=== PATIENT | female | born 1990 | race Caucasian/White ===

== ENCOUNTER 2018-01-20 08:47 | Emergency (ER) | payer MEDICAID, OTHER ==
[2018-01-20 08:52] VITALS: O2SAT 99; BMI 46.9
--- NOTE | 2018-01-20 10:03 | ED PDOC ---
HPI: Female Pain Chief Complaint (Provider): suprapubic pain History Per: Patient Onset/Duration Of Symptoms: Hrs Current Symptoms Are (Timing): Still Present Quality Of Discomfort: Sharp Associated Symptoms: denies: Fever, Chills Alleviating Factors: Rest Additional Complaint(s): 27 yo F with no significant medical history presented to ED with complaint of suprapubic pain x3-4 hrs. [place] pain when she woke up, but pain did not wake her up from sleep. Pain is described as sharp, rated 8/10, radiates to both lower quadrants, and is aggravated by walking/movement. She did not take any medication at home for the pain to go away. Pt had copper IUD placed 3 mo ago at clinic in [place] - states she has not had any problems with it until now. ROS: denies headache, chest pain, shortness of breath, dysuria, nausea, vomiting , diarrhea, feeling ill. States she was in usual state of health last night. Ob hx: ; had elective surgical termination 2 y ago Denies chronic med problems Denies other surgeries aside from TOP Social hx: daily marijuana smoker, no cigarette smoking, no alcohol use Fam hx: asthma NKDA No medications <Jeannie Fernando - Last Filed: 01/20/18 14:18> <Daniel Aguilar III - Last Filed: 01/22/18 19:16> Time Seen by Provider: 01/20/18 09:11 Chief Complaint (Nursing): Female Genitourinary Supervising Attending Note - Attestation: I have personally seen and examined this patient.: Yes I have fully participated in the care of the patient.: Yes I have reviewed all pertinent clinical information, including history, physical exam and plan: Yes - Notes: Notes:: seen and examined, agree with plan, results d/w patient and necessity of followup MACHINE DESIGN ENGINEER discussed for IUD eval possible removal <Daniel Aguilar III - Last Filed: 01/22/18 19:16> Past Medical History Reviewed: Nursing Documentation, Vital Signs Vital Signs: Last Vital Signs Temp 97 F L 01/20/18 08:51 Pulse 91 H 01/20/18 08:51 Resp BP 141/87 01/20/18 08:51 Pulse Ox 99 01/20/18 08:51 - Medical History PMH: No Chronic Diseases Denies: Chronic Kidney Disease - Surgical History Other surgeries: elective termination of 2016 - Family History Family History: States: No Known Family Hx - Social History Alcohol: None Drugs: Cannabis <Jeannie Fernando - Last Filed: 01/20/18 14:18> Vital Signs: Last Vital Signs Temp 98.5 F 01/20/18 15:14 Pulse 78 01/20/18 15:14 Resp 20 01/20/18 15:14 BP 132/68 01/20/18 15:14 Pulse Ox 99 01/20/18 15:14 <LaurenDanielRosendo III - Last Filed: 01/22/18 19:16> - Home Medications Home Medications: Ambulatory Orders Medication Instructions Recorded Amoxicillin/Potassium Clav 1 each PO BID #25 tablet 12/15/15 [Augmentin 875-125 Tablet] Ciprofloxacin [Cipro] 500 mg PO BID #14 tab 01/20/18 Ibuprofen [Motrin Tab] 600 mg PO Q6 PRN #15 tab 01/20/18 - Allergies Allergies/Adverse Reactions: Allergies Allergy/AdvReac Type Severity Reaction Status Date / Time No Known Allergies Allergy Verified 01/20/18 09:03 Review of Systems ROS Statement: Except As Marked, All Systems Reviewed And Found Negative Genitourinary Female: Positive for: Pelvic Pain <Jeannie Fernando - Last Filed: 01/20/18 14:18> Physical Exam - Reviewed Nursing Documentation Reviewed: Yes Vital Signs Reviewed: Yes - Physical Exam Appears: Positive for: No Acute Distress Skin: Positive for: Normal Color, Warm, Dry Eye Exam: Positive for: PERRL Cardiovascular/Chest: Positive for: Regular Rate, Rhythm. Negative for: Chest Non Tender Respiratory: Positive for: Normal Breath Sounds. Negative for: Respiratory Distress Gastrointestinal/Abdominal: Positive for: Bowel Sounds, Soft, Tenderness ( suprapubic) Pelvic Exam: Positive for: External Exam Normal, Speculum Exam Normal, Bimanual Exam Normal, No Cerv. Motion Tender, Discharge (scant, yellowish), Other ( pelvic exam performed with pedro Grayson RN in room. 2 IUD strings visualized in at cervical os). Negative for: Blood Back: Positive for: Normal Inspection. Negative for: L CVA Tenderness, R CVA Tenderness Extremity: Positive for: Capillary Refill (less than 2 sec). Negative for: Calf Tenderness, Deformity Neurologic/Psych: Positive for: Alert, Oriented <Jeannie Fernando - Last Filed: 01/20/18 14:18> - Laboratory Results Result Diagrams: 01/20/18 10:47 01/20/18 10:47 - ECG O2 Sat by Pulse Oximetry: 99 <Jeannie Fernando - Last Filed: 01/20/18 14:18> - Laboratory Results Result Diagrams: 01/20/18 10:47 01/20/18 10:47 <Daniel Aguilar III - Last Filed: 01/22/18 19:16> Medical Decision Making Medical Decision Making: Urine preg Urine dip -- preg neg, Urine dip positive leuk esterase UA, Urine C&S Tylenol 650 PO Transvaginal pelvic u/s CBC CMP Pelvic exam was performed with Maureen Grayson RN as stock handler in room. IUD strings visualized. Cervix without lesions, nontender. Scant yellow discharge noted- cultures taken with endocervical swab. Bimanual exam: no adnexal tenderness, suprapubic tenderness as on abdominal exam, no cervical motion tenderness. Pending blood work results and transvaginal ultrasound. 1243: WBC 15.2 UA: pos leuk esterase IUD in lower uterine segment, unremarkable pelvic u/s. Pt stated some relief with acetaminophen. 1 gm Rocephin IV for UTI. Pt stable for d/c home with PO antibiotics for UTI, ED precautions given. Follow up with [facility] in [place] or MACHINE DESIGN ENGINEER of choice in 2-3 days for possible IUD removal if still desires. Pt seen/discussed with Dr. Aguilar. <Jeannie Fernando - Last Filed: 01/20/18 14:18> Disposition - Patient ED Disposition Is Patient to be Admitted: No - Disposition Disposition Time: 14:17 <Don Fernandoa - Last Filed: 01/20/18 14:18> <Daniel Aguilar III - Last Filed: 01/22/18 19:16> - Clinical Impression Clinical Impression: Urinary tract infection, Pain due to intrauterine contraceptive device (IUD) - Disposition Referrals: [facility] [Outside] Condition: STABLE Additional Instructions: Please follow up with MACHINE DESIGN ENGINEER a [facility] in [place] or other lace and textiles restorer of choice in 2-3 days Please take antibiotics as prescribed Return to ED if you have fever, chills, increased unrelenting pain, vaginal bleeding, other acute change in condition Prescriptions: Ciprofloxacin [Cipro] 500 mg PO BID #14 tab Ibuprofen [Motrin Tab] 600 mg PO Q6 PRN #15 tab PRN Reason: Pain, Moderate (4-7) Instructions: Urinary Tract Infection, Adult (DC) Forms: [employer] (Wallisian)
[2018-01-20 10:55] LABS: BASO % 0.1 % (0.0-2.0); EOS # 0.1 K/uL (0.0-0.7); EOS % 0.5 % (0.0-4.0); HEMOGLOBIN 14.4 g/dL (12.0-16.0); LYMPH # 1.2 K/uL (1.0-4.3); LYMPH % 8.1 % (20.0-40.0); MEAN CELL VOLUME 83.9 fl (81.0-99.0); MEAN CORPUSCULAR HEMOGLOBIN 28.3 pg (27.0-31.0); MEAN CORPUSCULAR HGB CONC 33.8 g/dL (33.0-37.0); MEAN PLATELET VOLUME 9.7 fl (7.2-11.7); MONO # 0.9 K/uL (0.0-0.8); MONO % 5.9 % (0.0-10.0); NEUT % 85.4 % (50.0-75.0); PLATELET COUNT 220 K/uL (130-400); RBC 5.09 Mil/uL (3.80-5.20); RED CELL DISTRIBUTION WIDTH 13.2 % (11.5-14.5); WHITE BLOOD COUNT 15.2 K/uL (4.8-10.8)
[2018-01-20 10:57] LABS: SQUAMOUS EPITHIAL 1 /hpf (0-5); URINE BILIRUBIN NEGATIVE (NEGATIVE); URINE BLOOD NEGATIVE (NEGATIVE); URINE CLARITY SLIGHTY-CLOUDY (Clear); URINE COLOR YELLOW (YELLOW); URINE GLUCOSE (UA) NEG (Normal); URINE LEUKOCYTE ESTERASE SMALL Leu/uL (Negative); URINE PROTEIN NEGATIVE (NEGATIVE); URINE UROBILINOGEN 0.2-1.0 mg/dL (0.2-1.0)
[2018-01-20 11:03] LABS: ALB/GLOB RATIO 1.2 (1.0-2.1); ALBUMIN 4.1 g/dL (3.5-5.0); ALT/SGPT 27 U/L (9-52); AST/SGOT 19 U/L (14-36); BLOOD UREA NITROGEN 12 mg/dl (7-17); CALCIUM 9.1 mg/dL (8.4-10.2); GFR AFRICAN-AMERICAN > 60; GFR NON-AFRICAN AMERICAN > 60
[2018-01-20 11:22] LABS: LYMPHOCYTE 11 % (20-50); MONOCYTE 3 % (0-10); NEUTROPHIL 86 % (42-75); PLATELET ESTIMATE NORMAL (NORMAL); TOTAL CELLS COUNTED 100
--- NOTE | 2018-01-20 12:10 | US ---
Date of service: 01/20/2018 HISTORY: pelvic pain, IUD COMPARISON: None available. TECHNIQUE: Transabdominal and transvaginal pelvic ultrasound was performed. FINDINGS: UTERUS: Measures 9.4 x 4.1 x 3.4 cm. Anteverted, normal in size and appearance. No fibroid or other mass lesion seen. ENDOMETRIUM: Measures 6.6 mm in diameter. Central endometrial echo complex is normal in appearance. The intrauterine device is low in position identified in the lower uterine segment. CERVIX: No cervical abnormality identified. RIGHT OVARY: Measures 3.1 x 3.4 x 2.4 cm. No solid mass. Normal flow. LEFT OVARY: Measures 3.1 x 3.2 x 1.6 cm. No solid mass. Normal flow. FREE FLUID: No significant free fluid noted. OTHER FINDINGS: None. IMPRESSION: Low position of the intrauterine device identified in the lower uterine segment. Otherwise unremarkable pelvic ultrasound.
[2018-01-20] MEDS ORDERED: cefTRIAXone (Rocephin) 1 gm Inj ONE (13:55)
[2018-01-20 15:15] VITALS: BP 132/68; PULSE 78; RESP 20; TEMP 98.5
== END 2018-01-20 15:15 | disposition home or self-care (01) ==
LOC: H.ER 08:47
DX: N39.0 Urinary tract infection, site not specified (principal); Z97.5 Presence of (intrauterine) contraceptive device
CPT/HCPCS: 76830; 76856; 80053; 81003; 81025; 85025; 87086; 87491; 87591; 99283; J0696